=== PATIENT | female | born 1995 | race Caucasian/White ===

== ENCOUNTER 2023-11-18 19:01 | Emergency (ER) | payer OTHER ==
[~2023-11-18] VITALS: Ht 160 cm; Wt 51.4 kg
[2023-11-18] MEDS ORDERED: NS 1,000 ML IV ONE (19:30)
[2023-11-18] MEDS ORDERED: Ondansetron 4 MG/2 ML VIAL IV ONE (19:30)
[2023-11-18 19:48] LABS: COLLECTION METHOD CLEAN CATCH
[2023-11-18 19:55] LABS: BASO # 0.1 K/mm3 (0.0-0.2); BASO % 0.5 % (0.0-2.0); EOS # 0.1 K/mm3 (0.0-0.7); EOS % 0.5 % (0.0-4.0); GRAN # 8.4 K/mm3 (1.4-6.5); HEMATOCRIT 45.4 % (37.0-47.0); HEMOGLOBIN 14.8 g/dl (12.5-16.0); LYMPH # 2.5 K/mm3 (1.2-3.4); LYMPH % 21.2 % (20.0-51.0); MEAN CELL VOLUME 84 fl (80.0-100.0); MEAN CORPUSCULAR HEMOGLOBIN 28 pg (27-31); MEAN CORPUSCULAR HGB CONC 33 g/dl (33.0-37.0); MEAN PLATELET VOLUME 8.6 fl (7.4-10.4); MONO # 0.6 K/mm3 (0.1-0.6); MONO % 5.5 % (1.7-9.3); PLATELET COUNT 265 K/mm3 (130-400); RED BLOOD COUNT 5.38 M/mm3 (4.10-5.30); REDCELL DISTRIBUTION WIDTH-CV 12.8 % (11.5-14.5)
[2023-11-18 20:17] LABS: ALBUMIN 4.4 g/dL (3.5-5.0); BILIRUBIN,TOTAL 1.4 mg/dL (0.2-1.2); CALCIUM 10.1 mg/dL (8.4-10.2); CREATININE, serum 0.98 mg/dL (0.57-1.11); POTASSIUM 3.5 mEq/L (3.5-4.5)
[2023-11-18] MEDS ORDERED: NS 50 ML IV SCH (20:25)
[2023-11-18] MEDS ORDERED: Iohexol 300 - 100 ML VIAL IV ONE (20:25)
[2023-11-18 20:26] LABS: URINE APPEARANCE TURBID (CLEAR/HAZY); URINE BLOOD 2+ (NEGATIVE); URINE COLOR RED (YELLOW); URINE GLUCOSE NEGATIVE (NEGATIVE); URINE KETONE NEGATIVE (NEGATIVE); URINE NITRATE POSITIVE (NEGATIVE); URINE PROTEIN(semi-quant) 2+ (NEGATIVE); URINE UROBILINOGEN 0.2 E.U/dL (0.2-1.0)
[2023-11-18 20:27] LABS: MUCOUS PRESENT (NOT PRESENT); URINE RBC >50 /hpf (0-2); URINE WBC None Seen /hpf (0-2)
[2023-11-18] MEDS ORDERED: cefTRIAXone 1 G in Water For Injection,Sterile 10 ML IV ONE (21:15)
[2023-11-18 21:59] VITALS: BP 111/72; PULSE 98; TEMP 98.4
== END 2023-11-18 21:59 | disposition short-term general hospital (02) ==
LOC: COL.ER 19:01
PROVIDERS: Emergency Medicine
DX: N83.202 Unspecified ovarian cyst, left side (principal); N39.0 Urinary tract infection, site not specified
CPT/HCPCS: J0696; J2405; J7030; Q9967